=== PATIENT | male | born 2000 | race Caucasian/White ===

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

== ENCOUNTER → 2020-09-30 | Outpatient (REF) | payer BC | LOC: M SFHCCLAY 13:52 | PROVIDERS: ATTEND Physician Assistant | DX: N45.1 Epididymitis (principal) ==

== ENCOUNTER → 2021-02-02 | Outpatient (CLI) | payer BC ==
--- NOTE | 2021-02-04 19:36 | REP ---
INDICATION: LT INGUINAL HERNIA. COMPARISON: None. TECHNIQUE: Axial noncontrast images through the pelvis with coronal and sagittal reformations. FINDINGS: Visualized portions of the small and large bowel are essentially normal. Pelvis demonstrates normal bladder and age-appropriate prostate/seminal vesicles. There is no evidence for inguinal hernia. No ascites. No adenopathy. Abdominal aorta appears normal. Musculoskeletal structures demonstrate chronic bilateral L5 pars defects (spondylolysis) without spondylolisthesis. IMPRESSION: 1. No evidence for inguinal hernia. 2. 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 <Electronically signed by Walter Araya > 02/04/211931
== END ==
LOC: M RAD 17:15
PROVIDERS: ATTEND Nurse Practitioner Family
DX: M47.816 Spondylosis without myelopathy or radiculopathy, lumbar region (principal)

== ENCOUNTER → 2022-11-06 | Outpatient (CLI) | payer BC | LOC: M RAD 13:24 | PROVIDERS: ATTEND Nurse Practitioner Family | DX: R22.0 Localized swelling, mass and lump, head (principal) ==

== ENCOUNTER → 2022-12-14 | Outpatient (CLI) | payer BC ==
[~2022-12-14] MED LIST: OMEGA-3 1000MG CAPSULE ONE; PROHANCE 279.3MG/ML 15ML VIAL ONE; PROHANCE 279.3MG/ML 5ML VIAL ONE
== END ==
LOC: M PLAIMG 08:13
PROVIDERS: ATTEND Family Medicine
DX: L72.3 Sebaceous cyst (principal)